=== PATIENT | male | born 2000 | race Two or more races ===

== ENCOUNTER 2024-04-05 09:27 | Emergency (ER) | payer SELFPAY ==
[2024-04-05 09:35] VITALS: BP 113/71; PULSE 63; RESP 18; TEMP 98.1; BMI 22.4
== END 2024-04-05 10:52 | disposition home or self-care (01) ==
LOC: JERFT 09:27
PROC: 0XQFXZZ Repair Left Lower Arm, External Approach (ICD-10-PCS; principal; 2024-04-05)
DX: S51.812A Laceration without foreign body of left forearm, initial encounter (principal); W27.2XXA Contact with scissors, initial encounter
CPT/HCPCS: 99283-25